=== PATIENT | female | born 1935 | race Caucasian/White ===

== ENCOUNTER 2018-05-01 13:00 | Inpatient (IN) | payer MEDICARE ==
[2018-05-07 11:24] VITALS: BMI 26.2
[2018-05-13] MEDS ORDERED: traMADol HCl 50 MG TAB PO PRN ×2 (08:42)
[2018-05-13] MEDS ORDERED: diphenhydrAMINE 25 MG CAP PO PRN (08:42)
[2018-05-13] MEDS ORDERED: Acetaminophen 325 MG TAB PO PRN (08:42)
[2018-05-13] MEDS ORDERED: Fentanyl 100 MCG/2 ML VIAL SLOW IVP PRN (08:42)
[2018-05-13] MEDS ORDERED: Ondansetron PF 4 MG/2 ML Vial IVP PRN ×2 (08:42)
[2018-05-13] MEDS ORDERED: Promethazine HCl 25 MG/ML VIAL IM PRN ×2 (08:42)
[2018-05-13] MEDS ORDERED: Ketorolac Tromethamine 30 MG/ML VIAL IVP PRN (08:42)
[2018-05-13] MEDS ORDERED: Zolpidem Tartrate 5 MG TAB PO PRN ×2 (08:42)
[2018-05-13] MEDS ORDERED: Ropivacaine HCl/PF 250 ML in Premix Bag 1 BAG NERVE BLCK SCH (08:42)
[2018-05-13] MEDS ORDERED: HYDROcodone/Acetaminophen 10/325 mg Tablet PO PRN ×2 (08:42)
[2018-05-13] MEDS ORDERED: Fentanyl 100 MCG/2 ML VIAL IV PRN (08:44)
[2018-05-13] MEDS ORDERED: HYDROcodone/Acetaminophen 7.5/325 mg Tablet PO PRN (08:45)
[2018-05-13] MEDS ORDERED: Multivitamin W/ Minerals 1 TAB PO SCH (09:00)
[2018-05-13] MEDS ORDERED: Non-Formulary Item 1 EACH (Omeprazole [Omeprazole] 20 MG) PO SCH (09:00)
[2018-05-13] MEDS ORDERED: Aspirin 81 mg Enteric Coated Tablet PO SCH (09:00)
[2018-05-13] MEDS ORDERED: Ropivacaine 0.5% HCl/PF (150 MG/30 ML VIAL) ONE (09:53)
[2018-05-13] MEDS ORDERED: Bupivacaine 0.25% HCL 30 ML VIAL ONE (09:53)
[2018-05-13] MEDS ORDERED: ePHEDrine/0.9% NaCl/PF SYRINGE 50 mg/10 ml ONE (10:09)
[2018-05-13] MEDS ORDERED: Ondansetron PF 4 MG/2 ML Vial ONE (10:09)
[2018-05-13] MEDS ORDERED: Dexamethasone 20 MG/5 ML VIAL ONE (10:09)
[2018-05-13] MEDS ORDERED: PROPOFOL 200 MG/20 ML VIAL ONE (10:09)
[2018-05-13] MEDS ORDERED: CAFFEINE PO PRN (10:45)
[2018-05-13] MEDS ORDERED: ACETAMINOPHEN PO PRN (10:45)
--- NOTE | 2018-05-13 10:59 | OP ---
DATE OF PROCEDURE: 05/13/2018 PREOPERATIVE DIAGNOSIS: End-stage tricompartmental osteoarthritis of left knee. POSTOPERATIVE DIAGNOSIS: End-stage tricompartmental osteoarthritis of left knee. OPERATIVE PROCEDURE: Cemented cruciate-sparing computer-assisted navigated left total knee arthropla heriberto. SURGEON: Toby Melendez M.D. ACCOUNT SERVICE REPRESENTATIVE: Anam Gibson PA-C. ANESTHESIA: General via laryngeal mask airway augmented with single shot sciatic block and indwellin g adductor canal block. COMPONENTS USED: [employer] Triathlon cemented cruciate-sparing primary size 3 femoral comp onent with a cemented cruciate sparing Triathlon primary size 3 tibial baseplate with a 9 mm polyethy colin fixed bearing insert and A29 patellar button. TOURNIQUET TIME: 44 minutes at 300 mmHg. FINDINGS: End-stage tricompartmental disease, bone on bone arthrosis, periarticular osteophyte forma tion, large serous effusion, hypertrophic synovium. DRAINS: None. SPECIMENS: None. COMPLICATIONS: None. COUNTS: Correct. ESTIMATED BLOOD LOSS: Less than 100 mL. INDICATIONS FOR SURGERY: Katerin is an 82-year-old white female who has had progressive left knee pain amplified with standing and walking for the last 5-7 years. She has failed conservative manage ment and has elected to proceed with total knee arthroplasty as definitive treatment of her pain. PROCEDURE IN DETAIL: After informed consent was obtained in the preoperative holding area. The eladio ent was taken to the operative suite where general anesthesia was induced. Once adequate level of ge neral anesthesia was obtained, the patient was positioned and a well-padded tourniquet was placed gus und the left proximal thigh. The left lower extremity was then prepped and draped in the usual steri le fashion. Prior to exsanguination, a time out was called and all members of the surgical team agre ed upon site, surgeon, and patient. The extremity was then exsanguinated and the tourniquet was rais ed. A midline longitudinal incision was then made directly over the patella extending two fingerbrea dths above the superior pole of the patella and two fingerbreadths inferior to the inferior patellar pole of the patella. Deeper subcutaneous layers were dissected sharply and local bleeding was contro lled with Bovie electrocautery. A quad tendon longitudinal split was then made sharply and a median parapatellar arthrotomy was carried out both sharp and with Bovie electrocautery, carried down to one fingerbreadth medial to the tibial tubercle. The knee was then placed into flexion and the patella was everted nicely, and a copious fat pad ectomy was performed allowing for greater exposure of the t ibia. The computer-assisted distal femoral fiducial was then placed and pinned firmly, and the dista l femoral cutting guide was pinned firmly into place. The oscillating saw was then used to remove th e appropriate amount of bone. The 4-in-1 cutting block was then placed on the distal femur and the o scillating saw was used to remove the appropriate amount of bone off of the anterior, posterior, and chamfer cuts. After completion of bone cuts, the anterior cruciate ligament was resected sharply and the posterior cruciate ligament retractor was placed and the tibia was subluxed for better exposure. Partial meniscectomies were carried out, and the tibial computer-assisted fiducial was pinned, and the cutting guide was placed. Oscillating saw was then used to remove the bone with Hohmann retracto rs used to take care and protect the collateral ligaments. After the tibial resection was performed, a laminar mechanical systems designer was placed in between the freshened bone cuts. The knee placed at 90 degrees and further bilateral meniscectomies were carried out, and the curved osteotome and curettage was used t o remove any excess bone spurs in the posterior compartment. The trial femoral component, tibial bas eplate were placed with the appropriate polyethylene trial insert with an appropriate polyethylene sp acer and patellar button. The knee was taken through full range of motion with flexion and extension from 0-90 degrees and patellar broach squarely in the trochlea without any squinting or subluxation noted. The knee was also stable to varus and valgus stressing at 0, 15, 45, and 90 degrees of flexi on. The drawer was negative. All trial components were then removed and the keel punch was used to p rovide the appropriate defect in the tibia with a mallet. The freshened bone cuts were copiously irr igated with pulsatile lavage of about 1-1/2 liters to remove all excess debris. The freshened bone c uts were then dried and with suction and lap sponge. The knee was placed in flexion and retractors w ere placed to provide access to all bone cuts. Tobramycin impregnated methyl methacrylate cement was then placed on the freshened bone cuts and implants which were malleted firmly into place. Curettag e and [place] elevators were used to remove any excess bone cement. The knee was placed into full exte nsion and the patellar button was placed under compression, and the cement was allowed to cure. Once completed, the components were again taken through full range of motion and copious irrigation of th e knee was carried out with another liter of normal saline. All components were inspected fully with full range of motion and varus and valgus stressing. There was no laxity noted and full extension wa s observed clinically. Primary closure was accomplished with #2 interrupted Vicryl stitch of the art hrotomy defect. This was oversewn with a #2 running Quill barbed stitch. The subcutaneous layer was then closed with a running 0 barbed Monocryl stitch and skin closure accomplished with a running sub cuticular 3-0 Monocryl barbed Quill stitch and augmented with cement on the skin. Tourniquet was low ered. Good spontaneous return of distal pulses was noted clinically and a sterile dressing was appli ed to the incision. The procedure was terminated without any complications. The patient was awakene d in the operative suite and taken to the recovery room in stable condition.
--- NOTE | 2018-05-13 12:44 | RAD ---
TWO VIEWS LEFT KNEE: History: Left knee arthroplasty. Post-operative radiographs. FINDINGS: AP and lateral views of the left knee demonstrate a left knee arthroplasty. Femoral and tibial compon ents are in good position. No evidence of fractures or loosening seen. IMPRESSION: Status post left knee arthroplasty. POS: [facility]
[2018-05-13] MEDS ORDERED: Fentanyl 100 MCG/2 ML VIAL ONE (13:24)
[2018-05-13] MEDS: Calcium Carbonate 500 MG TAB PO SCH ×2 (14:37→21:59)
[2018-05-13] MEDS: Polyethylene Glycol 3350 17 GM Packet PO SCH (14:37)
[2018-05-13] MEDS: Aspirin 81 mg Enteric Coated Tablet PO SCH ×2 (14:37→21:59)
[2018-05-13] MEDS: Citalopram 20 MG TAB PO SCH (14:37)
[2018-05-13] MEDS: Lisinopril/Hydrochlorothiazide 20/25 mg Tablet PO SCH (14:37)
[2018-05-13] MEDS: Ferrous Gluconate 324 MG TAB PO SCH ×2 (14:37→21:59)
[2018-05-13] MEDS: Senokot S 8.6-50 MG TAB PO SCH ×2 (14:38→22:05)
[2018-05-13] MEDS: Multivitamin W/ Minerals 1 TAB PO SCH (14:38)
[2018-05-13] MEDS: Ketorolac Tromethamine 30 MG/ML VIAL IM SCH ×2 (15:02→22:08)
[2018-05-13] MEDS: HYDROcodone/Acetaminophen 7.5/325 mg Tablet PO PRN (15:03)
[2018-05-13] MEDS: CEFAZOLIN/Water 2 GM/20 ML SYRINGE SLOW IVP SCH ×2 (15:05→22:27)
[2018-05-13] MEDS: Sodium Chloride 0.9% 1,000 ML IV SCH ×2 (15:38→18:38)
--- NOTE | 2018-05-13 16:03 | PDOC.FPRHP ---
- History of Present Illness Chief Complaint: s/p Lt total knee History of Present Illness: Mrs. Burns is a pleasant 82year old woman with a past medical history of hypertension, hyperlipidemia, GERD, TIA in 2016, and chronic constipation, who presents in the hospital s/p Left total knee replacement. She regularly follows with a primary care physician who controls her medical conditions. She reports she is in no acute pain and is experiencing mild discomfort from her surgery. She does not endorse any medical needs at this time and requested we continue all home medications as she was well managed on these medications prior to admission. ED Course: NA - Allergies/Adverse Reactions Allergies Allergy/AdvReac Type Severity Reaction Status Date / Time No Known Allergies Allergy Verified 05/07/18 11:26 - Home Medications Medication Instructions Recorded Confirmed Type Lisinopril/Hydrochlorothiazide 1 tablet PO DAILY 02/17/16 05/07/18 History [Lisinopril-Hctz 20-25 mg Tab] Aspirin [Ecotrin] 81 mg PO QAM 02/20/16 05/07/18 History Atorvastatin Calcium [Lipitor] 20 mg PO QPM 02/20/16 05/07/18 History Gabapentin 300 mg PO HS 02/20/16 05/07/18 History Acetaminophen/Caffeine [Tension 2 each PO Q6HR PRN 05/07/18 05/07/18 History Headache Caplet] Ascorbic Acid [Vitamin C] 1,000 mg PO DAILY 05/07/18 05/07/18 History Calcium Carbonate [Calcium] 500 mg PO BID 05/07/18 05/07/18 History Citalopram Hydrobromide 20 mg PO DAILY 05/07/18 05/07/18 History [Citalopram HBr] Docusate [Colace] 200 mg PO HS 05/07/18 05/07/18 History Multivitamin W/ Minerals 1 tab PO DAILY 05/07/18 05/07/18 History [Theragran M] Omeprazole 20 mg PO BID 05/07/18 05/07/18 History Polyethylene Glycol 3350 [Miralax] 17 gm PO DAILY 05/07/18 05/07/18 History - History PMHx: Hypertension, GERD, high cholesterol, TIA in 2016, insomnia, chronic constipation PSHx: Total hysterectomy 1969 FHx: non-contributory Social: Never smoker, non-drinker, no illicit drug use. - Review of Systems General: denies: fever/chills Eyes: denies: eye pain ENT: denies: nasal congestion Respiratory: denies: cough, congestion, shortness of breath Cardiovascular: denies: chest pain Gastrointestinal: denies: nausea, vomiting, diarrhea, constipation, abdominal pain Genitourinary: reports: other Skin: denies: rashes Musculoskeletal: reports: swelling (Left leg due to recent Total knee replacement). denies: pain Neurological: denies: numbness - Vital signs BP:145/72 HR: 72 RR: 16 Tmax: 98.6 Pox: 96% on Room air Wt: 67kg - Physical Exam Constitutional: NAD, awake, alert and oriented, well developed HEENT: normocephalic and atraumatic, EOMI, grossly normal vision, grossly normal hearing Neck: supple, FROM, trachea midline, no JVD Heart: RRR, normal S1/S2, no murmurs/rubs/gallops Lungs: CTAB, no respiratory distress, no rales/rhonchi, no wheezing, no retractions Abdomen: soft, non-tender, bowel sounds present, no masses/distention Musculoskeletal: normal structure, normal tone, other (left kneed wrapped in surgical bandage) Neurological: no focal deficit Skin: capillary refill <2 seconds Heme/Lymphatic: no unusual bruising or bleeding Psychiatric: normal mood and affect, good judgment and insight FMR H&P: A/P - Problem List (1) HTN (hypertension) Current Visit: Yes Status: Acute Code(s): I10 - ESSENTIAL (PRIMARY) HYPERTENSION (2) HLD (hyperlipidemia) Current Visit: Yes Status: Acute Code(s): E78.5 - HYPERLIPIDEMIA, UNSPECIFIED (3) GERD (gastroesophageal reflux disease) Current Visit: Yes Status: Acute Code(s): K21.9 - GASTRO-ESOPHAGEAL REFLUX DISEASE WITHOUT ESOPHAGITIS (4) Anxiety and depression Current Visit: Yes Status: Acute Code(s): F41.9 - ANXIETY DISORDER, UNSPECIFIED; F32.9 - MAJOR DEPRESSIVE DISORDER, SINGLE EPISODE, UNSPECIFIED (5) Insomnia Current Visit: Yes Status: Acute Code(s): G47.00 - INSOMNIA, UNSPECIFIED (6) Chronic constipation Current Visit: Yes Status: Acute Code(s): K59.09 - OTHER CONSTIPATION - Plan 1) HTN: - resume home meds - monitor 2) HLD: - resume home meds 3) GERD: - resume home meds 4) Insomnia: - resume home meds 5) Anxiety/depression - resume home meds 6) Chronic constipation - resume home meds - colace and miralax scheduled - monitor Is/Os Dispo: Will cont home medications for chronic medical conditions. Pain control and d/c per ortho. Currently stable from medical perspective, cont to monitor. Attending Addendum - Attending Addendum Date/Time: 05/13/18 6060 I personally evaluated the patient and discussed the management with Dr. Miller. I agree with the History, Examination, Assessment and Plan documented above with any addition or exceptions noted below. Patient here with multiple medication conditions and s/p knee replacement. Her pain is well controlled. She reports otherwise doing well and chronic conditions controlled on current doses of medications. She takes all medications daily as prescribed. Vitals are currently stable. We will resume home meds and continue to follow while patient is in hospital. Changes will be made as indicated and will investigate any acute illness that may present during hospitalization. Pain control and disposition per primary team. Will follow.
[2018-05-13] MEDS: traMADol HCl 50 MG TAB PO PRN (17:42)
[2018-05-13] MEDS ORDERED: Docusate 100 MG CAP PO SCH (21:00)
[2018-05-13] MEDS: Atorvastatin Calcium 20 MG TAB PO SCH (21:59)
[2018-05-13] MEDS: Gabapentin 300 MG CAP PO SCH (21:59)
[2018-05-14] MEDS: Sodium Chloride 0.9% 1,000 ML IV SCH ×2 (00:42→17:07)
[2018-05-14] MEDS: Ketorolac Tromethamine 30 MG/ML VIAL IM SCH ×3 (05:26→22:17)
[2018-05-14 06:14] LABS: Hemoglobin 11.1 g/dL (12.0-16.0); Mean Corpuscular HGB CONC 33.4 g/dL (32.0-36.0); Mean Corpuscular Hemoglobin 32.4 pg (27.0-31.0); Mean Platelet Volume 8.4 fL (7.4-10.4); Platelet Count 324 thou/uL (130-400); RBC Distribution Width 12.7 % (11.5-14.5); Red Blood Cell (RBC) Count 3.44 mill/uL (4.20-5.40); White Blood Cell (WBC) Count 13.1 thou/uL (4.8-10.8)
--- NOTE | 2018-05-14 07:53 | PDOC.FM ---
- Subjective Subjective: No acute events overnight. Denies cp, sob, NVD. Carnes out this am, no urine, flatus or BM yet. Denies abdominal pain. Otherwise stable. - Objective Vital Signs & Weight: Vital Signs (12 hours) Temp Pulse Resp BP Pulse Ox 05/14/18 03:52 98.5 F 73 18 119/66 96 05/13/18 23:41 98.1 F 83 16 120/67 95 05/13/18 20:52 98.2 F 85 16 105/63 95 05/13/18 20:00 98.2 F 85 16 Weight Weight 67.132 kg I&O: 05/13/18 05/14/18 05/15/18 06:59 06:59 06:59 Intake Total 1200 Output Total 1525 Balance -325 Result Diagrams: 05/14/18 05:03 <Dante Miller - Last Filed: 05/14/18 07:53> - Objective Vital Signs & Weight: Vital Signs (12 hours) Temp Pulse Resp BP BP Pulse Ox 05/14/18 08:28 84 123/66 05/14/18 08:22 98.7 F 84 20 122/66 94 L 05/14/18 03:52 98.5 F 73 18 119/66 96 05/13/18 23:41 98.1 F 83 16 120/67 95 Weight Weight 67.132 kg I&O: 05/13/18 05/14/18 05/15/18 06:59 06:59 06:59 Intake Total 1200 Output Total 1525 Balance -325 Result Diagrams: 05/14/18 05:03 <Octaviano Majano - Last Filed: 05/14/18 10:03> Phys Exam - Physical Examination Constitutional: NAD HEENT: PERRLA, sclera anicteric Neck: no nodes Respiratory: no wheezing, no rales, no rhonchi Cardiovascular: RRR, no significant murmur, no rub Gastrointestinal: soft, non-tender, no distention, positive bowel sounds Musculoskeletal: pulses present, edema present (LLE, brace and wound dressing in place) Neurological: non-focal Psychiatric: normal affect <Dante Miller - Last Filed: 05/14/18 07:53> Dx/Plan (1) HTN (hypertension) Code(s): I10 - ESSENTIAL (PRIMARY) HYPERTENSION Status: Acute (2) HLD (hyperlipidemia) Code(s): E78.5 - HYPERLIPIDEMIA, UNSPECIFIED Status: Acute (3) GERD (gastroesophageal reflux disease) Code(s): K21.9 - GASTRO-ESOPHAGEAL REFLUX DISEASE WITHOUT ESOPHAGITIS Status: Acute (4) Anxiety and depression Code(s): F41.9 - ANXIETY DISORDER, UNSPECIFIED; F32.9 - MAJOR DEPRESSIVE DISORDER, SINGLE EPISODE, UNSPECIFIED Status: Acute (5) Insomnia Code(s): G47.00 - INSOMNIA, UNSPECIFIED Status: Acute (6) Chronic constipation Code(s): K59.09 - OTHER CONSTIPATION Status: Acute - Plan Plan: 1) HTN: - resume home meds - stable 2) HLD: - resume home meds, stable 3) GERD: - resume home meds, stable and asymptomatic 4) Insomnia: - resume home meds, stable 5) Anxiety/depression - resume home meds, stable on current regimen 6) Chronic constipation - resume home meds - colace and miralax scheduled - monitor Is/Os - stable Pain control and dispo per primary team. <Dante Miller - Last Filed: 05/14/18 07:53> (1) HTN (hypertension) Code(s): I10 - ESSENTIAL (PRIMARY) HYPERTENSION Status: Acute (2) HLD (hyperlipidemia) Code(s): E78.5 - HYPERLIPIDEMIA, UNSPECIFIED Status: Acute (3) GERD (gastroesophageal reflux disease) Code(s): K21.9 - GASTRO-ESOPHAGEAL REFLUX DISEASE WITHOUT ESOPHAGITIS Status: Acute (4) Anxiety and depression Code(s): F41.9 - ANXIETY DISORDER, UNSPECIFIED; F32.9 - MAJOR DEPRESSIVE DISORDER, SINGLE EPISODE, UNSPECIFIED Status: Acute (5) Insomnia Code(s): G47.00 - INSOMNIA, UNSPECIFIED Status: Acute (6) Chronic constipation Code(s): K59.09 - OTHER CONSTIPATION Status: Acute <Octaviano Majano - Last Filed: 05/14/18 10:03> Attending Addendum - Attending Addendum Date/Time: 05/14/18 1003 I personally evaluated the patient and discussed the management with Dr. Miller. I agree with the History, Examination, Assessment and Plan documented above with any addition or exceptions noted below. Patient doing well and has plans to start PT today. Chronic medical conditions controlled. Pain mgmt and dispo per primary team. Will continue to follow along. <Octaviano Majano R - Last Filed: 05/14/18 10:03>
[2018-05-14] MEDS: HYDROcodone/Acetaminophen 7.5/325 mg Tablet PO PRN ×4 (08:27→22:16)
[2018-05-14] MEDS: Polyethylene Glycol 3350 17 GM Packet PO SCH (08:27)
[2018-05-14] MEDS: Citalopram 20 MG TAB PO SCH (08:28)
[2018-05-14] MEDS: Lisinopril/Hydrochlorothiazide 20/25 mg Tablet PO SCH (08:28)
[2018-05-14] MEDS: Calcium Carbonate 500 MG TAB PO SCH ×2 (08:29→21:36)
[2018-05-14] MEDS: Ferrous Gluconate 324 MG TAB PO SCH ×2 (08:29→21:36)
[2018-05-14] MEDS: Aspirin 81 mg Enteric Coated Tablet PO SCH ×2 (08:29→21:37)
[2018-05-14] MEDS: Multivitamin W/ Minerals 1 TAB PO SCH (08:29)
[2018-05-14] MEDS: Senokot S 8.6-50 MG TAB PO SCH ×2 (09:00→21:41)
--- NOTE | 2018-05-14 17:48 | PRG ---
DATE OF SERVICE: 05/14/2018 SUBJECTIVE: Katerin is an 82-year-old female who is postop day #1 from left total knee arthroplas ty. She is doing relatively well. She is tolerating a regular diet and voiding. OBJECTIVE: VITAL SIGNS: Temperature 98.9, pulse 80, blood pressure is 123/66, respiratory rate 20, O2 saturatio ns 98% on room air. GENERAL: She is alert and oriented to person, place, time, and situation. Nonfocal. Appropriate wi th examiner. Incision is clean and closed. No erythema, no through. She is neurovascularly intact in the left lower extremity. LABORATORY DATA: Hemoglobin and hematocrit 11.1 and 32.3. IMPRESSION: 1. An 82-year-old female postop day #1 left total knee arthroplasty, doing relatively well. 2. Mild postoperative hemorrhagic anemia, asymptomatic. PLAN: Continue current management, home discharge expected tomorrow.
[2018-05-14] MEDS: traMADol HCl 50 MG TAB PO PRN (21:33)
[2018-05-14] MEDS: Gabapentin 300 MG CAP PO SCH (21:36)
[2018-05-14] MEDS: Atorvastatin Calcium 20 MG TAB PO SCH (21:36)
[2018-05-15] MEDS: Sodium Chloride 0.9% 1,000 ML IV SCH ×2 (00:42→11:50)
[2018-05-15 04:35] LABS: Hemoglobin 10.3 g/dL (12.0-16.0); Mean Corpuscular HGB CONC 33.8 g/dL (32.0-36.0); Mean Corpuscular Hemoglobin 32.8 pg (27.0-31.0); Mean Corpuscular Volume 96.8 fL (78.0-98.0); Mean Platelet Volume 8.3 fL (7.4-10.4); Platelet Count 298 thou/uL (130-400); RBC Distribution Width 12.6 % (11.5-14.5); Red Blood Cell (RBC) Count 3.16 mill/uL (4.20-5.40); White Blood Cell (WBC) Count 13.8 thou/uL (4.8-10.8)
[2018-05-15] MEDS: traMADol HCl 50 MG TAB PO PRN ×2 (06:13→12:34)
[2018-05-15] MEDS: Ketorolac Tromethamine 30 MG/ML VIAL IM SCH ×2 (06:18→15:14)
--- NOTE | 2018-05-15 08:10 | PDOC.FM ---
- Subjective Subjective: No acute events over night. Passing flatus and voiding. Tolerating PO. No other complaints. - Objective Vital Signs & Weight: Vital Signs (12 hours) Temp Pulse Resp BP Pulse Ox 05/15/18 07:46 98.7 F 75 16 96 05/15/18 04:00 98.7 F 75 16 120/76 96 05/14/18 23:35 98.6 F 78 18 127/64 95 05/14/18 21:27 99.6 F 81 16 168/73 H 94 L Weight Admit Weight 67.132 kg Weight 67.132 kg I&O: 05/14/18 05/15/18 05/16/18 06:59 06:59 06:59 Intake Total 1200 580 Output Total 1525 950 Balance -325 -370 Result Diagrams: 05/15/18 04:03 <Dante Miller - Last Filed: 05/15/18 08:07> - Objective Vital Signs & Weight: Vital Signs (12 hours) Temp Pulse Resp BP BP Pulse Ox 05/15/18 08:39 75 133/70 05/15/18 07:46 98.7 F 75 16 96 05/15/18 07:27 86 16 133/70 92 L 05/15/18 04:00 98.7 F 75 16 120/76 96 05/14/18 23:35 98.6 F 78 18 127/64 95 Weight Admit Weight 67.132 kg Weight 67.132 kg I&O: 05/14/18 05/15/18 05/16/18 06:59 06:59 06:59 Intake Total 1200 580 Output Total 1525 950 Balance -325 -370 Result Diagrams: 05/15/18 04:03 <Octaviano Majano - Last Filed: 05/15/18 10:27> Phys Exam - Physical Examination Constitutional: NAD HEENT: PERRLA, sclera anicteric Neck: no nodes, no JVD Respiratory: no wheezing, no rales, no rhonchi, clear to auscultation bilateral Cardiovascular: RRR, no significant murmur Gastrointestinal: soft, non-tender, no distention, positive bowel sounds Musculoskeletal: pulses present, edema present (LLE) Neurological: non-focal, moves all 4 limbs <Dante Miller - Last Filed: 05/15/18 08:07> Dx/Plan (1) HTN (hypertension) Code(s): I10 - ESSENTIAL (PRIMARY) HYPERTENSION Status: Acute (2) HLD (hyperlipidemia) Code(s): E78.5 - HYPERLIPIDEMIA, UNSPECIFIED Status: Acute (3) GERD (gastroesophageal reflux disease) Code(s): K21.9 - GASTRO-ESOPHAGEAL REFLUX DISEASE WITHOUT ESOPHAGITIS Status: Acute (4) Anxiety and depression Code(s): F41.9 - ANXIETY DISORDER, UNSPECIFIED; F32.9 - MAJOR DEPRESSIVE DISORDER, SINGLE EPISODE, UNSPECIFIED Status: Acute (5) Insomnia Code(s): G47.00 - INSOMNIA, UNSPECIFIED Status: Acute (6) Chronic constipation Code(s): K59.09 - OTHER CONSTIPATION Status: Acute - Plan Plan: 1) HTN: -stable, cont home meds 2) HLD: - stable, cont meds 3) GERD: - stable, cont meds 4) Insomnia: - stable, cont meds 5) Anxiety/depression - stable, cont meds 6) Chronic constipation - stable, cont senna/colace - home colace dc'd, resume on DC Pain control and dispo per primary team. <Dante Miller - Last Filed: 05/15/18 08:07> (1) HTN (hypertension) Code(s): I10 - ESSENTIAL (PRIMARY) HYPERTENSION Status: Acute (2) HLD (hyperlipidemia) Code(s): E78.5 - HYPERLIPIDEMIA, UNSPECIFIED Status: Acute (3) GERD (gastroesophageal reflux disease) Code(s): K21.9 - GASTRO-ESOPHAGEAL REFLUX DISEASE WITHOUT ESOPHAGITIS Status: Acute (4) Anxiety and depression Code(s): F41.9 - ANXIETY DISORDER, UNSPECIFIED; F32.9 - MAJOR DEPRESSIVE DISORDER, SINGLE EPISODE, UNSPECIFIED Status: Acute (5) Insomnia Code(s): G47.00 - INSOMNIA, UNSPECIFIED Status: Acute (6) Chronic constipation Code(s): K59.09 - OTHER CONSTIPATION Status: Acute <Octaviano Majano - Last Filed: 05/15/18 10:27> Attending Addendum - Attending Addendum Date/Time: 05/15/18 1026 I personally evaluated the patient and discussed the management with Dr. Miller. I agree with the History, Examination, Assessment and Plan documented above with any addition or exceptions noted below. No changes to therapy today. Chronic conditions are stable and well controlled. Ready for discharge whenever the primary team feels patient is ready for dispo. <Octaviano Majano - Last Filed: 05/15/18 10:27>
[2018-05-15] MEDS: Aspirin 81 mg Enteric Coated Tablet PO SCH (08:38)
[2018-05-15] MEDS: Senokot S 8.6-50 MG TAB PO SCH (08:38)
[2018-05-15] MEDS: Multivitamin W/ Minerals 1 TAB PO SCH (08:39)
[2018-05-15] MEDS: Lisinopril/Hydrochlorothiazide 20/25 mg Tablet PO SCH (08:39)
[2018-05-15] MEDS: Calcium Carbonate 500 MG TAB PO SCH (08:40)
[2018-05-15] MEDS: Ferrous Gluconate 324 MG TAB PO SCH (08:40)
[2018-05-15] MEDS: Polyethylene Glycol 3350 17 GM Packet PO SCH (08:40)
[2018-05-15] MEDS: Citalopram 20 MG TAB PO SCH (08:40)
[2018-05-15 11:46] VITALS: BP 143/72; TEMP 98.5
--- NOTE | 2018-05-19 11:06 | DIS ---
DATE OF ADMISSION: 05/13/2018 DATE OF DISCHARGE: 05/15/2018 ADMISSION DIAGNOSIS: End-stage tricompartmental osteoarthritis, left knee. DISCHARGE DIAGNOSIS: End-stage tricompartmental osteoarthritis, left knee. DISCHARGE DISPOSITION: Home. OPERATIVE PROCEDURE: Left total knee arthroplasty. CONSULTANTS: [facility] for acute postop pain management and [facility] fo r medical management. BRIEF CLINICAL HISTORY: The patient was admitted to [facility] and underwent the above elective procedure on the date of admission without intra, lakisha, or postoperative complicat ion. The hospital course was unremarkable. At the time of discharge, the patient is afebrile, ambul atory without assistance utilizing a rolling walker in a full weightbearing fashion, tolerating a reg ular diet, and voiding without difficulty. The patient's incision is clean and closed without any er ythema. DISCHARGE MEDICATIONS: Please see medication reconciliation form. We will be happy to see the patient on an as needed basis between now and her next scheduled appointm ent. CONDITION ON DISCHARGE: Stable. PROGNOSIS: Good.
== END 2018-05-15 15:55 | disposition home or self-care (01) | DRG 470 ==
LOC: SURG A 05-13 06:13 → SURG B 05-13 13:33
PROVIDERS: ADMIT Orthopaedic Surgery; ATTEND Orthopaedic Surgery
PROC: 0SRD0J9 Replacement of Left Knee Joint with Synthetic Substitute, Cemented, Open Approach (ICD-10-PCS; principal; 2018-05-14)
PROC: 8E0YXBZ Computer Assisted Procedure of Lower Extremity (ICD-10-PCS; 2018-05-14)
DX: M17.12 Unilateral primary osteoarthritis, left knee (principal); D64.9 Anemia, unspecified; I10 Essential (primary) hypertension; E78.5 Hyperlipidemia, unspecified; K21.9 Gastro-esophageal reflux disease without esophagitis; F41.9 Anxiety disorder, unspecified; F32.9 Major depressive disorder, single episode, unspecified; G47.00 Insomnia, unspecified; K59.09 Other constipation; Z86.73 Personal history of transient ischemic attack (TIA), and cerebral infarction without residual deficits
CPT/HCPCS: 36415; 85027; C1713; C1776; G8978-GP-CJ; G8979-GP-CI; J1100; J1885; J2405; J2704; J2795; J3010; S0020

== ENCOUNTER 2018-05-07 11:11 | Outpatient (CLI) | payer MEDICARE ==
--- NOTE | 2018-05-07 12:47 | RAD ---
CHEST TWO VIEWS: History: Pre op. Comparison: 02-17-16 FINDINGS: There are chronic interstitial opacities. No pneumothorax or effusion. Cardiac silhouette is upper li mits of normal. Mild dilatation of the main pulmonary arteries. No acute osseous abnormalities. IMPRESSION: Chronic changes. No acute intrathoracic abnormality. POS: [facility]
[2018-05-07 12:50] LABS: #Eosinphils 0.2 thou/uL (0.0-0.7); #Lymphocytes 2.2 thou/uL (1.20-3.40); #Neutrophils 6.4 thou/uL (1.40-6.50); %Basophils 0.5 % (0.0-1.0); %Eosinophils 1.9 % (0.0-10.0); %Lymphocytes 22.8 % (21.0-51.0); %Monocytes 9.8 % (0.0-10.0); %Neutrophils 65.1 % (42.0-75.0); Hemoglobin 13.3 g/dL (12.0-16.0); Mean Corpuscular HGB CONC 32.4 g/dL (32.0-36.0); Mean Corpuscular Hemoglobin 31.4 pg (27.0-31.0); Mean Corpuscular Volume 96.8 fL (78.0-98.0); Mean Platelet Volume 8.9 fL (7.4-10.4); Platelet Count 348 thou/uL (130-400); Red Blood Cell (RBC) Count 4.25 mill/uL (4.20-5.40); White Blood Cell (WBC) Count 9.8 thou/uL (4.8-10.8)
[2018-05-07 12:55] LABS: Bilirubin Negative (Negative); Blood, Urine Negative (Negative); Clarity CLEAR (Clear); Glucose, Urine (Dipstick) Negative (Negative); Leukocyte Negative (Negative); Nitrite Negative (Negative); Protein, Urine (Dipstick) Negative (Neg-Trace); Prothrombin Time 13.4 SEC (12.0-14.7); Specific Gravity, Urine 1.018 (1.002-1.036); Urobilinogen 0.2 mg/dL (0.2-1.0); pH, Urine 7.5 (5.0-9.0)
[2018-05-07 12:57] LABS: Bacteria/HPF None Seen HPF (None Seen); Hyaline Casts/LPF 0-3 HYALINE CAST LPF (0-3 Hyaline); Pathc Cast-AUWi Flag 0.14 (0-2.49); Squamous Epithelial 0-3 HPF (0-3); WBC/HPF 0-3 HPF (0-3)
[2018-05-07 13:17] LABS: Anion Gap 16 mmol/L (10-20); BUN (Urea Nitrogen) 25 mg/dL (9.8-20.1); Calc. Creatinine Clearance 0 mL/min (70-130); Carbon Dioxide 29 mmol/L (23-31); Chloride 95 mmol/L (98-107); Estimated GFR-MDRD 52; Glucose 77 mg/dL (83-110); Potassium 3.9 mmol/L (3.5-5.1); Sodium 136 mmol/L (136-145)
== END 2018-05-07 11:12 | disposition home or self-care (01) ==
LOC: LABBT 11:11
PROVIDERS: ATTEND Orthopaedic Surgery
DX: Z01.818 Encounter for other preprocedural examination (principal); M17.12 Unilateral primary osteoarthritis, left knee
CPT/HCPCS: 71046; 80048; 81001; 85025; 85610; 86850; 86900; 86901; 87081; 93005; 93010

== ENCOUNTER 2018-06-08 15:51 | Observation (INO) | payer MEDICARE ==
[2018-06-08 16:18] LABS: #Basophils 0.1 thou/uL (0.0-0.2); #Eosinphils 0.1 thou/uL (0.0-0.7); #Lymphocytes 2.5 thou/uL (1.20-3.40); #Monocytes 1.5 thou/uL (0.11-0.59); #Neutrophils 9.1 thou/uL (1.40-6.50); %Basophils 0.6 % (0.0-1.0); %Eosinophils 0.5 % (0.0-10.0); %Lymphocytes 18.6 % (21.0-51.0); %Monocytes 11.6 % (0.0-10.0); %Neutrophils 68.7 % (42.0-75.0); Hemoglobin 12.3 g/dL (12.0-16.0); Mean Corpuscular HGB CONC 34.4 g/dL (32.0-36.0); Mean Corpuscular Hemoglobin 32.3 pg (27.0-31.0); Mean Corpuscular Volume 93.7 fL (78.0-98.0); Mean Platelet Volume 7.3 fL (7.4-10.4); Platelet Count 588 thou/uL (130-400); Red Blood Cell (RBC) Count 3.82 mill/uL (4.20-5.40); White Blood Cell (WBC) Count 13.3 thou/uL (4.8-10.8)
[2018-06-08 16:37] LABS: ALT (SGPT) 40 U/L (8-55); AST (SGOT) 31 U/L (5-34); Albumin 3.9 g/dL (3.4-4.8); Alkaline Phosphatase 95 U/L (40-150); Anion Gap 14 mmol/L (10-20); BUN (Urea Nitrogen) 48 mg/dL (9.8-20.1); Bilirubin, Total 0.5 mg/dL (0.2-1.2); CK (CPK) 230 U/L (29-168); Calc. Creatinine Clearance 0 mL/min (70-130); Calcium 8.9 mg/dL (7.8-10.44); Carbon Dioxide 32 mmol/L (23-31); Chloride 86 mmol/L (98-107); Estimated GFR-MDRD 27; Globulin 2.7 g/dL (2.4-3.5); Glucose 150 mg/dL (83-110); Protein, Total 6.6 g/dL (6.0-8.3); Sodium 129 mmol/L (136-145)
[2018-06-08] MEDS ORDERED: Ondansetron HCl/PF 4 MG/2 ML Vial ONE (16:37)
[2018-06-08 16:41] LABS: Troponin I 0.024 ng/mL (< 0.028)
[2018-06-08 16:43] LABS: Potassium 2.7 mmol/L (3.5-5.1)
[2018-06-08] MEDS ORDERED: Potassium Chloride 20 MEQ/100 ML PREMIX BAG ONE (16:51)
[2018-06-08] MEDS ORDERED: Potassium Chloride 20 MEQ TAB ONE (16:51)
--- NOTE | 2018-06-08 16:51 | CT ---
CT BRAIN NONCONTRAST: HISTORY: 82-year-old female with generalized weakness, dizziness, nausea, and emesis. FINDINGS: There is no midline shift or any other mass effect. There is no evidence of acute intracranial hemor rhage, large cortical infarct, obstructive hydrocephalus, or extraaxial fluid collection. The calvar ium is intact. There is diffuse parenchymal volume loss. There are low attenuation areas in the whi te matter. These are nonspecific, but in a patient of this age, they are probably chronic ischemic w donald matter changes due to microvascular atherosclerosis. IMPRESSION: 1) No acute intracranial findings. 2) Involutional changes and chronic ischemic white matter changes. jn POS: [facility]
--- NOTE | 2018-06-08 17:10 | RAD ---
RADIOGRAPH CHEST 1 VIEW: DATE: 06-08-18 TIME: 4:34 p.m. HISTORY: 82-year-old female with generalized weakness, nausea, and syncope. FINDINGS: There is hyperinflation of the lungs, consistent with COPD. There is no evidence of air space densit y, pneumothorax, or pulmonary edema. The lateral costophrenic angles are sharp. IMPRESSION: 1) No acute pulmonary findings. 2) Emphysema. claire POS: [facility]
[2018-06-08] MEDS ORDERED: Senokot 8.6 MG TAB PO PRN (17:31)
[2018-06-08] MEDS ORDERED: Calcium Carbonate 500 MG ChewTAB PO PRN (17:31)
[2018-06-08] MEDS ORDERED: Bisacodyl 5 MG TAB PO PRN (17:31)
[2018-06-08] MEDS ORDERED: Mag-Al 1200 mg/1200 mg/30 ML UDCUP PO PRN (17:31)
[2018-06-08] MEDS ORDERED: Acetaminophen 325 MG TAB PO PRN (17:31)
[2018-06-08] MEDS ORDERED: Ondansetron HCl/PF 4 MG/2 ML Vial IVP PRN (17:31)
--- NOTE | 2018-06-08 17:31 | PDOC.EVN ---
Event Note - Event Note Event Note: h&p [id number]
--- NOTE | 2018-06-08 18:00 | HP ---
PRIMARY CARE PHYSICIAN: Dr. Gregg. CHIEF COMPLAINT: Weakness. HISTORY OF PRESENT ILLNESS: This is an 82-year-old female with a known history of hypertension, hyperlipidemia, gastroesophageal reflux disease and recent left total knee arthroplasty who presents with a chief complaint of weakness. It appears that the patient approximately 1 week ago had an episode of diarrheal illness after which she had to completely decreased the appetite and extensive nausea. She was seen by her primary care doctor for those same complaints 2 days after onset of symptoms on 06/02/2018. Patient was given a shot of antiemetic and given a prescription for further antiemetics. That afternoon, patient states that she felt significantly better and was able to tolerate some Gatorade. However, the following day, the patient had recurrence of her nausea that has been refractory to her oral antiemetic. Patient denies any vomiting with any of these episodes. She does endorse having taken some Lomotil, which has been helping with her diarrheal symptoms and she has been having regular bowel movements, despite her decreased oral intake. Patient is accompanied today by her daughter at bedside. REVIEW OF SYSTEMS: As per HPI. CONSTITUTIONAL: No recent fevers, no chills, no significant weight loss or gain that the patient is aware of. HEENT: No headaches. Endorses both dizziness and lightheadedness and is having some trouble differentiating which is more predominant in her symptoms. Denies any blurry vision. CARDIOVASCULAR: Denies any chest pain, chest pressure. Denies any palpitations, left-sided arm numbness or tingling. RESPIRATORY: Denies any cough, congestion, shortness of breath with exertion or at rest. Denies any recent upper respiratory infection. GASTROINTESTINAL: As per HPI above. GENITOURINARY: Denies any dysuria, but has been having decreased urine output that has been darker than usual. The patient's daughter at bedside states that when the patient went to go see her primary care provider, she did have a UA done at that point in time which was negative for urinary tract infection, but commented to be "concentrated." MUSCULOSKELETAL: Denies any myalgias or arthralgias, but generalized easy fatigability and weakness. Remainder of the review of systems otherwise negative. PAST MEDICAL HISTORY: 1. As per above. 2. Hypertension. 3. Hyperlipidemia. 4. Degenerative joint disease with osteoarthritis, status post left knee arthroplasty on 05/13/2018. 5. History of TIA in 2016. 6. Gastroesophageal reflux disease. 7. Chronic constipation status post hysterectomy in 1970. FAMILY HISTORY: Negative for any issues with nausea and gastrointestinal disease. SOCIAL HISTORY: Denies any alcohol, tobacco or illicit drug use. PHYSICAL EXAMINATION: GENERAL: The patient is awake, alert, conversant, in no acute distress, seated in the ER stretcher. HEENT: Normocephalic, atraumatic. Dry mucous membranes. Extraocular motions are intact. No vertical nystagmus. Cranial nerves II-XII grossly intact. CARDIOVASCULAR: S1 and S2. No murmurs, rubs or gallops. Pulses 2+ bilateral upper extremities. No carotid bruits. No pitting pedal edema. RESPIRATORY: Reasonable air movement. No wheezes, rales or rhonchi. No conversational dyspnea. Grossly clear to auscultation bilaterally. ABDOMEN: Soft, positive bowel sounds. Nontender to palpation. MUSCULOSKELETAL: Able to self reposition the stretcher without difficulty and is moving all extremities independently. IMAGING DATA AND LABORATORY DATA: On 06/08/2018, CT of the brain, impression, "no acute intracranial findings." Involutional changes and chronic ischemic white matter changes. On 06/08/2018, chest x-ray impression, "no acute pulmonary findings and emphysema." CBC: WBC 13.3, hemoglobin 12.3, hematocrit 35.8, platelets 588. Sodium 129, potassium 2.7, chloride 86, bicarbonate 32, BUN 48, creatinine 1.8, glucose 150 , calcium 8.9, total bilirubin 0.5, AST 31, ALT 40, alkaline phosphatase 95, creatinine kinase 230. Troponin 0.024. Total protein 6.6, albumin 3.9. ASSESSMENT AND PLAN: This is an 82-year-old female who is presenting with a chief complaint of weakness and one weakness, slightly attributable to patient' s dehydration and marked electrolyte abnormalities as noted above. 1. Dehydration and volume depletion. Continue with IV fluid, normal saline with 40 mEq of potassium. BMP every 6 hours. Patient will need to be maintained on telemetry. 2. Elevated bicarbonate. Obtain an ABG as well to further delineate the etiology. 3. Nausea. Unclear if this is necessarily postviral or if there is a component of BPPV. Check orthostatic vital signs. Also, obtain serial troponins in case there is cardiac racing car driver for the patient's presentation, although that is significantly less likely. 4. Acute kidney injury, likely secondary to prerenal etiology by history; check urine electrolytes, renal ultrasound. If there fails to be significant improvement with hydration, would have a low threshold for Nephrology consultation. 5. Leukocytosis. Could be secondary to infectious or reactive in nature. Continue to closely monitor. Most likely source of infection could be the possibility of a urinary tract infection as the patient has not made any urine. Obtain blood cultures as well. 6. Diet: As tolerated. 7. Activity: As tolerated. 8. Deep venous thrombosis prophylaxis with heparin secondary to renal dysfunction. The patient has indicated she wishes to be FULL CODE. Her daughter at bedside would be her medical decision maker if she is unable to make her own medical decisions. MARCUS
[2018-06-08 18:19] LABS: Bilirubin Small (Negative); Blood, Urine Negative (Negative); Clarity TURBID (Clear); Glucose, Urine (Dipstick) Negative (Negative); Leukocyte Moderate (Negative); Nitrite Negative (Negative); Protein, Urine (Dipstick) 30 mg/dL (Neg-Trace); Specific Gravity, Urine 1.019 (1.002-1.036); pH, Urine 5.5 (5.0-9.0)
[2018-06-08 18:20] LABS: Bacteria/HPF 4+ HPF (None Seen); Squamous Epithelial 21-50 HPF (0-3)
[2018-06-08 18:24] LABS: Pathc Cast-AUWi Flag 10.46 (0-2.49)
[2018-06-08 18:32] LABS: Lactic Acid 1.6 mmol/L (0.5-2.2)
[2018-06-08 18:35] LABS: Anion Gap 13 mmol/L (10-20); BUN (Urea Nitrogen) 45 mg/dL (9.8-20.1); Calc. Creatinine Clearance 0 mL/min (70-130); Calcium 8.7 mg/dL (7.8-10.44); Carbon Dioxide 30 mmol/L (23-31); Chloride 89 mmol/L (98-107); Estimated GFR-MDRD 30; Glucose 124 mg/dL (83-110); Magnesium 1.3 mg/dL (1.6-2.6); Sodium 129 mmol/L (136-145)
[2018-06-08 18:37] LABS: Potassium 2.8 mmol/L (3.5-5.1)
[2018-06-08 18:50] LABS: Hyaline Casts/LPF NONE SEEN LPF (0-3 Hyaline); Manual Microscopic Reviewed? No Path Casts Seen; RBC/HPF 0-3 HPF (0-3)
--- NOTE | 2018-06-08 19:14 | ULT ---
RENAL ULTRASOUND: History: Acute kidney injury. Comparison: None. FINDINGS: The right kidney measures 9.2 x 3.3 x 3.5 cm. Left kidney measures 8.1 x 4.2 x 4.2 cm. Pre void bladd er volume is 171.9 cc. No focal renal lesion or hydronephrosis is evident. IMPRESSION: No focal renal lesion or hydronephrosis. POS: BH
[2018-06-08 19:51] LABS: Troponin I 0.022 ng/mL (< 0.028)
[2018-06-08 20:33] VITALS: BMI 24.7
[2018-06-08] MEDS ORDERED: Famotidine/PF 20 mg/2ml Vial SLOW IVP SCH (21:00)
[2018-06-08] MEDS: Potassium Chloride 40 MEQ in Sodium Chloride 0.45% 1,000 ML IV SCH (21:35)
[2018-06-08] MEDS: Heparin 5,000 UNITS/ML VIAL SC SCH (21:35)
[2018-06-08 22:43] LABS: Troponin I 0.028 ng/mL (< 0.028)
[2018-06-08 23:04] LABS: Anion Gap 9 mmol/L (10-20); BUN (Urea Nitrogen) 44 mg/dL (9.8-20.1); Calc. Creatinine Clearance 29 mL/min (70-130); Calcium 8.5 mg/dL (7.8-10.44); Carbon Dioxide 31 mmol/L (23-31); Chloride 93 mmol/L (98-107); Estimated GFR-MDRD 34; Glucose 184 mg/dL (83-110); Potassium 3.4 mmol/L (3.5-5.1); Sodium 130 mmol/L (136-145)
[2018-06-08 23:42] LABS: Creatinine, Urine 129.37 mg/dL (47-110)
[2018-06-09 05:36] LABS: #Basophils 0.1 thou/uL (0.0-0.2); #Eosinphils 0.1 thou/uL (0.0-0.7); #Lymphocytes 2.8 thou/uL (1.20-3.40); #Monocytes 1.7 thou/uL (0.11-0.59); #Neutrophils 9.2 thou/uL (1.40-6.50); %Basophils 0.4 % (0.0-1.0); %Eosinophils 0.6 % (0.0-10.0); %Monocytes 12.5 % (0.0-10.0); %Neutrophils 66.6 % (42.0-75.0); Hemoglobin 10.4 g/dL (12.0-16.0); Mean Corpuscular HGB CONC 34.4 g/dL (32.0-36.0); Mean Corpuscular Hemoglobin 32.4 pg (27.0-31.0); Mean Corpuscular Volume 94.2 fL (78.0-98.0); Platelet Count 471 thou/uL (130-400); RBC Distribution Width 12.1 % (11.5-14.5); Red Blood Cell (RBC) Count 3.22 mill/uL (4.20-5.40); White Blood Cell (WBC) Count 13.8 thou/uL (4.8-10.8)
[2018-06-09 05:49] LABS: Anion Gap 12 mmol/L (10-20); BUN (Urea Nitrogen) 38 mg/dL (9.8-20.1); Calc. Creatinine Clearance 37 mL/min (70-130); Calcium 8.5 mg/dL (7.8-10.44); Carbon Dioxide 28 mmol/L (23-31); Chloride 94 mmol/L (98-107); Estimated GFR-MDRD 45; Glucose 96 mg/dL (83-110); Sodium 130 mmol/L (136-145)
[2018-06-09] MEDS: Potassium Chloride 40 MEQ in Sodium Chloride 0.45% 1,000 ML IV SCH (07:46)
[2018-06-09] MEDS ORDERED: Lidocaine 5% Patch TD SCH (09:00)
[2018-06-09] MEDS: Heparin 5,000 UNITS/ML VIAL SC SCH ×2 (09:50→16:26)
[2018-06-09] MEDS ORDERED: Magnesium 2 GM/NS 0.9% 100 ML 3 GM in Premix Bag 1 BAG IVPB SCH (11:00)
[2018-06-09] MEDS ORDERED: Magnesium Sulfate 3 GM in Sodium Chloride 0.9% 100 ML IVPB SCH (11:30)
[2018-06-09 11:51] VITALS: BP 111/67; TEMP 98.3
[2018-06-09 12:16] LABS: Anion Gap 11 mmol/L (10-20); BUN (Urea Nitrogen) 31 mg/dL (9.8-20.1); Calc. Creatinine Clearance 43 mL/min (70-130); Calcium 8.7 mg/dL (7.8-10.44); Carbon Dioxide 29 mmol/L (23-31); Chloride 92 mmol/L (98-107); Estimated GFR-MDRD 54; Glucose 163 mg/dL (83-110); Potassium 3.9 mmol/L (3.5-5.1); Sodium 128 mmol/L (136-145)
--- NOTE | 2018-06-09 16:47 | DIS ---
DATE OF ADMISSION: 06/08/2018 DATE OF DISCHARGE: 06/09/2018 PRIMARY CARE PHYSICIAN: Telly Dillon M.D. DISCHARGE DIAGNOSES: 1. Hypovolemia secondary to over diuresis. 2. Hyponatremia secondary to hydrochlorothiazide. 3. Hypokalemia. 4. Acute kidney injury secondary to over diuresis, resolved. 5. Essential hypertension. CONSULTATIONS: None. PROCEDURES: None. HISTORY AND PHYSICAL: Ms. Burns is an 82-year-old female with a history of hypertension on hydrochl orothiazide/lisinopril who was admitted 06/26/2018, had presented to the emergency department just ge nerally feeling weak. Workup showed her creatinine to be at 1.6 to above her baseline of 1.0, starti ng hyponatremic and hypokalemic. She was started on half normal saline plus 40 of KCl and blood pres sure medicines were held. Overnight, her creatinine normalized, her sodium slightly improved from 129 to 130, despite being on half normal saline. Blood pressure remained stable without any intervention, and she subsequently wa s feeling better and stable for discharge. PHYSICAL EXAMINATION: The patient was seen and examined on the day of discharge. Discharge plan and disposition discussed with the patient and her daughter face to face at the [facility]. DISCHARGE ACTIVITY: As tolerated per Orthopedic limitations. CONDITION: Stable. DISPOSITION: Discharged home via private vehicle. DISCHARGE DIET: Heart healthy recommended. DISCHARGE MEDICATIONS: 1. Acetaminophen/caffeine two tablets p.o. q.6 hours as needed for pain for headache. 2. Vitamin C 1000 mg daily. 3. Aspirin 81 mg b.i.d. 4. Atorvastatin 20 mg p.o. q.p.m. 5. Calcium carbonate 500 mg p.o. b.i.d. 6. Citalopram 20 mg p.o. daily. 7. Flexeril 10 mg p.o. t.i.d. p.r.n. 8. Docusate 200 mg p.o. at bedtime. 9. Gabapentin 300 mg p.o. at bedtime. 10. Multivitamin, multivitamin with minerals 1 p.o. daily. 11. Omeprazole 20 mg p.o. b.i.d. MEDICINES DISCONTINUED: Hydrochlorothiazide/lisinopril to be followed by her primary care physician. FOLLOWUP APPOINTMENTS: 1. PCP within a week. 2. Orthopedic as previous scheduled.
[2018-06-09] MEDS ORDERED: Lidocaine Patch Removal TOP SCH (21:00)
== END 2018-06-09 15:58 | disposition home or self-care (01) ==
LOC: ERS 15:51 → 2SW 17:40
PROVIDERS: ADMIT Internal Medicine; ATTEND Internal Medicine
DX: E86.1 Hypovolemia (principal); E87.1 Hypo-osmolality and hyponatremia; N17.9 Acute kidney failure, unspecified; T50.2X5A Adverse effect of carbonic-anhydrase inhibitors, benzothiadiazides and other diuretics, initial encounter; I10 Essential (primary) hypertension; E78.5 Hyperlipidemia, unspecified; K21.9 Gastro-esophageal reflux disease without esophagitis; K59.09 Other constipation; E86.0 Dehydration; D72.829 Elevated white blood cell count, unspecified; Z86.73 Personal history of transient ischemic attack (TIA), and cerebral infarction without residual deficits; Z79.82 Long term (current) use of aspirin; Z79.899 Other long term (current) drug therapy; Z96.652 Presence of left artificial knee joint
CPT/HCPCS: 70450; 71045; 76770; 80048 ×3; 80053; 82550; 82553; 82570; 83605; 83735 ×2; 84484 ×2; 84540; 85025 ×2; 87040; 93005; 96365; 96366 ×3; 96367; 96375 ×2; 97139; 99285; G0378 ×2; 36415; 81003; 81015; J1644; J2405; J3475; J3480; J7050; S0028

== ENCOUNTER 2019-02-23 11:11 | Outpatient (CLI) | payer MEDICARE ==
--- NOTE | 2019-02-23 16:03 | MMO ---
Bilateral MAMMO Bilat Screen [facility]. CLINICAL HISTORY: Patient is 83 years old and is seen for screening. The patient has the following family history of breast cancer: maternal aunt. The patient has no personal history of cancer. The patient has a history of left Excisional Biopsy in - benign. VIEWS: The views performed were: bilateral craniocaudal with tomosynthesis and bilateral mediolateral oblique with tomosynthesis. FILMS COMPARED: The present examination has been compared to prior imaging studies performed at [facility] on 08/08/2015, 08/10/2016 and 08/13/2017, and at [facility] on 06/20/2018. MAMMOGRAM FINDINGS: There are scattered fibroglandular densities. There are benign appearing densities seen in both breasts. There are no suspicious masses, suspicious calcifications, or new areas of architectural distortion. IMPRESSION: THERE IS NO MAMMOGRAPHIC EVIDENCE OF MALIGNANCY. A ROUTINE FOLLOW-UP MAMMOGRAM IN 1 YEAR IS RECOMMENDED. THE RESULTS OF THIS EXAM WERE SENT TO THE PATIENT. ACR BI-RADS Category 2 - Benign finding MAMMOGRAPHY NOTE: 1. A negative mammogram report should not delay a biopsy if a dominant of clinically suspicious mass is present. 2. Approximately 10% to 15% of breast cancers are not detected by mammography. 3. Adenosis and dense breasts may obscure an underlying neoplasm.
== END 2019-02-23 11:12 | disposition home or self-care (01) ==
LOC: BICMAMMO 11:11
PROVIDERS: ATTEND Internal Medicine
DX: Z12.31 Encounter for screening mammogram for malignant neoplasm of breast (principal); Z80.3 Family history of malignant neoplasm of breast
CPT/HCPCS: 77063; 77067